=== PATIENT | male | born 1980 | race Caucasian/White ===

== ENCOUNTER 2017-08-14 14:21 | Emergency (ER) | payer SELFPAY ==
[2017-08-14 14:49] VITALS: BP 133/88
[2017-08-14] MEDS ORDERED: Penicillin V Potassium 500 MG Tab PO ONE (15:23)
[2017-08-14] MEDS ORDERED: Naproxen 500 MG Tab PO ONE (15:23)
--- NOTE | 2017-08-14 15:31 | EDM.PDOC ---
ED HPI GENERAL MEDICAL PROBLEM - General Chief Complaint: ENT Problem Stated Complaint: TOOTH PAIN Time Seen by Provider: 08/14/17 14:33 Source of Information: Reports: Patient, Old Records, RN Notes Reviewed, Other ( [place] PMPi) History Limitations: Reports: No Limitations - History of Present Illness INITIAL COMMENTS - FREE TEXT/NARRATIVE: The patient states that he has had an upper left toothache on and off for the past 3 weeks. He believes he broke his tooth when he bit something hard, yesterday. He states that he saw a dentist in [place] about 3 weeks ago, that the dentist wanted to do surgery, but that the patient could not afford the $ 400 fee. The patient denies having any recent fever. He is unsure if he has had oral drainage. Review of prior medical records finds that the patient was seen at [facility] in [place], [place], on 07/09/2017 for the same dental complaint. The patient was given a prescription for a ten-day course of clindamycin and advised to follow-up with a dentist. Review of the [place] PMP[place] finds that the patient has 36 prescriptions for controlled substances by 19 prescribers, filled at 18 different pharmacies, most recently Percocet 5/325 #30 on 07/18/2017, Burdine 5/325 #6 on 07/21/2017, Tylenol #3 #10 on 07/29/2017, and Burdine 5/325 #8 on 08/01/2017, all by different prescribers, and note that all of these are prescriptions written after the patient was seen at [facility]. Further, when the patient was carefully questioned about his past medical history, he relates no medical history that would require pain medication of any type. Left Upper Tooth/Teeth Pain Score (Numeric/FACES): 8 - Related Data Allergies Allergy/AdvReac Type Severity Reaction Status Date / Time morphine Allergy Rash Verified 08/14/17 14:44 tramadol AdvReac Nausea Verified 07/09/17 01:48 CDT Home Meds: Home Meds Clindamycin HCl 1 tab PO TID 10 Days #30 capsule 07/09/17 [Rx] Naproxen 500 mg PO Q12H PRN #20 tablet 08/14/17 [Rx] Penicillin V Potassium 500 mg PO Q6HR #40 tab 08/14/17 [Rx] Past Medical History - Past Surgical History HEENT Surgical History: Reports: Oral Surgery (Globe teeth extraction) Respiratory Surgical History: Reports: Other (See Below) (Left chest tube) Musculoskeletal Surgical History: Reports: ORIF (right forearm) Social & Family History - Tobacco Use Smoking Status *Q: Current Every Day Smoker Years of Tobacco use: 22 Packs/Tins Daily: 0.8 Packs/Tins Daily Comment: Down from 1 ppd - Caffeine Use Caffeine Use: Reports: Coffee, Energy Drinks, Tea - Alcohol Use Alcohol Use History: Yes Alcohol Use Frequency: Rarely - Recreational Drug Use Recreational Drug Use: Yes Drug Use in Last 12 Months: Yes Recreational Drug Type: Reports: Marijuana/Hashish (edible) - Living Situation & Occupation Living situation: Reports: Single (engaged), with Significant Other (Fiance) Occupation: Unemployed ED ROS ENT - Review of Systems Review Of Systems: See Below Constitutional: Reports: No Symptoms. Denies: Fever HEENT: Reports: Dental Pain (as per the HPI) Respiratory: Reports: No Symptoms Endocrine: Reports: No Symptoms GI/Abdominal: Reports: No Symptoms : Reports: No Symptoms Musculoskeletal: Reports: No Symptoms Skin: Reports: No Symptoms Neurological: Reports: No Symptoms Psychiatric: Reports: No Symptoms Hematologic/Lymphatic: Reports: No Symptoms Immunologic: Reports: No Symptoms ED EXAM, ENT - Physical Exam Exam: See Below Exam Limited By: No Limitations General Appearance: Alert, WD/WN, No Apparent Distress Eye Exam: Bilateral Eye: Normal Inspection Ears: Normal External Exam, Normal Canal, Hearing Grossly Normal, Normal TMs Nose: Normal Inspection, Normal Mucousa, No Blood Mouth/Throat: Normal Inspection, Normal Lips, Normal Oropharynx, Other (Teeth #1 , 2 absent. Tooth #3 with filling. Tooth #13 with filling. Tooth #14 (the tooth of concern) with advanced decay, to the gingiva. Tooth #15 with advanced decay. Teeth #16, 17, 18 absent. Tooth #19 with filling. Teeth #31, 32 absent. There is swelling of the gingiva about teeth #14 and 15, but no pointing seen. No purulent drainage.) Head: Atraumatic, Normocephalic Neck: Normal Inspection, Supple, Non-Tender, Full Range of Motion, Lymphadenopathy (L) (Large lymph node, measuring approximately 2 cm diameter to the superior anterior cervical chain, however, the patient states that it has been like that for about 10 years.). No: Lymphadenopathy (R) Course - Vital Signs Last Recorded V/S: Last Vital Signs Temp 37.1 C 08/14/17 14:48 Pulse 96 08/14/17 14:48 Resp 20 08/14/17 14:48 BP 133/88 08/14/17 14:48 Pulse Ox 97 08/14/17 14:48 - Orders/Labs/Meds Meds: Medications Discontinued Medications Generic Name Dose Route Start Last Admin Trade Name Donaldo PRN Reason Stop Dose Admin Naproxen 500 mg 08/14/17 15:23 Naprosyn PO 08/14/17 15:24 ONETIME ONE Penicillin V Potassium 500 mg 08/14/17 15:23 Veetids PO 08/14/17 15:24 ONETIME ONE - Re-Assessments/Exams Free Text/Narrative Re-Assessment/Exam: 08/14/17 15:26 The patient has advanced decay of teeth #14 and 15. I will start him on oral penicillin and naproxen, however, I am not going to write him a prescription for a narcotic, as he was dishonest with me with respect to his history, and the [place] PMPi indicates that he has 36 prescriptions for controlled substances by 19 different prescribers, filled out 18 different pharmacies. Clearly, the patient is drug-seeking. 08/14/17 15:45 Notified by nurse Florence that the patient eloped from the ED without waiting for his penicillin, naproxen, or discharge instructions, and without notifying staff. Departure - Departure Time of Disposition: 15:27 Disposition: Home, Self-Care 01 Condition: Good Clinical Impression: Dental decay, Dental infection, Drug-seeking behavior - Discharge Information Prescriptions: Penicillin V Potassium 500 mg PO Q6HR #40 tab Naproxen 500 mg PO Q12H PRN #20 tablet PRN Reason: Pain Referrals: PCP,None [Primary Care Provider] - Forms: ED Department Discharge Additional Instructions: You were seen in the emergency room for upper left dental pain on and off for the past 3 weeks. On examination, you have severe decay of your teeth #14 and 15. You have been started on the antibiotic penicillin. Take one tablet every 6 hours, as prescribed. You have been started on the pain reliever naproxen. Take one tablet every 12 hours, with food, as prescribed. It is IMPERATIVE that you see a dentist for this condition. These medicines will not make your teeth get better. If any other problems, please do not hesitate to return to the ER.
== END 2017-08-14 15:15 | disposition home or self-care (01) ==
LOC: JD.ED 14:21
DX: K02.9 Dental caries, unspecified (principal); K04.7 Periapical abscess without sinus; Z76.5 Malingerer [conscious simulation]; F17.210 Nicotine dependence, cigarettes, uncomplicated; Z88.5 Allergy status to narcotic agent; Z79.899 Other long term (current) drug therapy
CPT/HCPCS: 99283